=== PATIENT | male | born 1985 | race Caucasian/White ===

== ENCOUNTER 2018-07-21 15:28 | Emergency (ER) | payer MEDICAID, OTHER ==
--- NOTE | 2018-07-21 15:47 | EDPHY ---
H & P Time Seen by Provider: 07/21/18 15:31 HPI/ROS: Chief complaint. Alcohol intoxication, concerned about withdrawal HPI. Patient 33-year-old male here by EMS with alcohol intoxication. Patient tells me he has been drinking for 9 days and has decided he wants to quit. He has been drinking approximately a gal of whiskey daily for the last 9 days. He does have a history of alcoholism. He denies any injuries or illness. He has been vomiting per EMS and they gave him Zofran in route. He also got a L of fluid. Denies chest pain, shortness of breath, abdominal pain. He has been placed on an [employer] hold per [employer] [employer] ROS 10 systems were reviewed and negative with the exception of the elements mentioned in the history of present illness Past Medical/Surgical History: Alcoholism, depression Social History: Single, nonsmoker, recent alcohol Smoking Status: Never smoked Physical Exam: General Appearance: Alert well-developed male obviously intoxicated vital signs significant for heart rate 103. Mild distress Eyes: Pupils equal round reactive. Sclera somewhat injected bilaterally. ENT, Mouth: Mucous membranes are moist. Respiratory: There are no retractions, lungs are clear to auscultation. Cardiovascular: Regular rate and rhythm. Gastrointestinal: Abdomen is soft and nontender, no masses, bowel sounds normal. Neurological: Awake and alert, sensory and motor exams grossly normal. Skin: Mild bruising to left mid abdomen. Musculoskeletal: Neck is supple nontender. Extremities symmetrical, full range of motion. Psychiatric: Patient is oriented X 3, there is no agitation. Constitutional: Initial Vital Signs Temperature (C) 36.7 C 07/21/18 15:37 Heart Rate 103 H 07/21/18 15:37 Respiratory Rate 16 07/21/18 15:37 Blood Pressure 127/74 H 07/21/18 15:37 O2 Sat (%) 96 07/21/18 15:37 O2 Delivery Mode Room Air Allergies/Adverse Reactions: No Known Allergies Allergy (Unverified 11/01/14 01:54) Home Medications: Medication Instructions Recorded Citalopram [CeleXA] 20 mg PO DAILY 11/01/14 Ondansetron Odt [Zofran Odt] 4 mg PO Q4 #10 tab 11/02/14 chlordiazePOXIDE [Librium] 25 mg PO TID #6 cap 04/30/15 Prozac 10 MG (*) 07/21/18 Medical Decision Making Procedures: IV normal saline ED Course/Re-evaluation: 7:00 p.m. patient is ambulatory. Patient is stable . He and I discussed laboratory evaluation, treatment plan including criteria for return importance of follow-up and further evaluation. He expresses understanding and agreement Differential Diagnosis: Acute alcohol intoxication without significant sequelae - Data Points Laboratory Results: Laboratory Results 07/21/18 16:29 07/21/18 16:29 07/21/18 07/21/18 16:29 16:29 WBC 5.52 10^3/uL 10^3/uL (3.80-9.50) RBC 4.99 10^6/uL 10^6/uL (4.40-6.38) Hgb 15.9 g/dL g/dL (13.7-17.5) Hct 49.4 % % (40.0-51.0) MCV 99.0 fL fL (81.5-99.8) MCH 31.9 pg pg (27.9-34.1) MCHC 32.2 g/dL L g/dL (32.4-36.7) RDW 15.1 % % (11.5-15.2) Plt Count 270 10^3/uL 10^3/uL (150-400) MPV 8.9 fL fL (8.7-11.7) Neut % (Auto) 14.5 % L % (39.3-74.2) Lymph % (Auto) 71.2 % H % (15.0-45.0) [place] % (Auto) 12.3 % % (4.5-13.0) Eos % (Auto) 0.2 % L % (0.6-7.6) Baso % (Auto) 0.5 % % (0.3-1.7) Nucleat RBC Rel Count 0.0 % % (0.0-0.2) Absolute Neuts (auto) 3.93 10^3/uL 10^3/uL (1.70-6.50) Absolute Lymphs (auto) 0.68 10^3/uL L 10^3/uL (1.00-3.00) Absolute Monos (auto) 0.80 10^3/uL 10^3/uL (0.30-0.80) Absolute Eos (auto) 0.01 10^3/uL L 10^3/uL (0.03-0.40) Absolute Basos (auto) 0.03 10^3/uL 10^3/uL (0.02-0.10) Absolute Nucleated RBC 0.00 10^3/uL 10^3/uL (0-0.01) Immature Gran % 1.3 % H % (0.0-1.1) Immature Gran # 0.07 10^3/uL 10^3/uL (0.00-0.10) Sodium 127 mEq/L L mEq/L (135-145) Potassium 3.7 mEq/L mEq/L (3.5-5.2) Chloride 81 mEq/L L mEq/L (97-110) Carbon Dioxide 31 mEq/l mEq/l (22-31) Anion Gap 15 mEq/L H mEq/L (6-14) BUN 15 mg/dL mg/dL (7-23) Creatinine 0.7 mg/dL mg/dL (0.7-1.3) Estimated GFR > 60 Glucose 147 mg/dL H mg/dL (70-100) Calcium 8.0 mg/dL L mg/dL (8.5-10.4) Total Bilirubin 0.5 mg/dL mg/dL (0.1-1.4) Conjugated Bilirubin 0.4 mg/dL mg/dL (0.0-0.5) Unconjugated Bilirubin 0.1 mg/dL mg/dL (0.0-1.1) AST 72 IU/L H IU/L (17-59) ALT 91 IU/L H IU/L (21-72) Alkaline Phosphatase 72 IU/L IU/L (38-126) Total Protein 6.5 g/dL g/dL (6.3-8.2) Albumin 4.0 g/dL g/dL (3.5-5.0) Ethyl Alcohol 410 mg/dL H* mg/dL (0-10) Medications Given: Discontinued Medications Sodium Chloride (Ns) 1,000 mls @ 0 mls/hr IV EDNOW ONE; Wide Open PRN Reason: Protocol Stop: 07/21/18 15:53 Last Admin: 07/21/18 16:22 Dose: 1,000 mls Departure - Departure Disposition: Home, Routine, Self-Care Clinical Impression: Alcoholic intoxication Qualifiers: Complication of substance-induced condition: uncomplicated Qualified Code(s): F10.920 - Alcohol use, unspecified with intoxication, uncomplicated Condition: Good Instructions: Abuse of Alcohol (ED) Additional Instructions: Do not drink further alcohol today. Librium 1 pill every 3-4 hours as needed for tremulousness and alcohol withdrawal Return for worsening symptoms. [facility] without fail Referrals: Patient,NotPresent [Unknown] - As per Instructions [facility] [Outside] - 2-3 days without fail
[2018-07-21] MEDS ORDERED: NS 1,000 ML IV ONE (15:52)
[2018-07-21 17:57] LABS: PLATELET COUNT 270 10^3/uL (150-400)
[2018-07-21] MEDS ORDERED: CHLORDIAZEPOXIDE 25MG PREPK#6 BTL TAKEHOME ONE ×2 (19:09→19:23)
[2018-07-21 19:10] VITALS: BP 127/76
== END 2018-07-21 19:43 | disposition home or self-care (01) ==
LOC: EDUNIT#
DX: F10.929 Alcohol use, unspecified with intoxication, unspecified (principal); Y90.8 Blood alcohol level of 240 mg/100 ml or more
CPT/HCPCS: G0480

== ENCOUNTER 2018-09-14 15:24 | Emergency (ER) | payer MEDICAID ==
--- NOTE | 2018-09-14 17:48 | EDPHY ---
H & P Smoking Status: Never smoked Time Seen by Provider: 09/14/18 17:37 HPI/ROS: CHIEF COMPLAINT: Bilateral plantar foot pain HISTORY OF PRESENT ILLNESS: 33-year-old homeless male complaining of 1 week of bilateral plantar foot pain, possibly related to cold exposure. He is able to bear weight albeit with pain. Denies trauma. Denies discoloration. Denies paresthesia. History of alcohol abuse. Denies seizure. Denies hallucination. Tetanus up-to-date PHYSICAL EXAM (Prior to examination, patient consented to physical exam, hands were washed and my usual and customary physical exam procedures followed) 1) GENERAL: Well-developed, well-nourished, alert and oriented. Appears to be in no acute distress. 2) HEAD: Normocephalic 3) HEENT: sclera anicteric 4) LUNGS: Breathing comfortably. 5) SKIN: Bilateral feet, plantar aspect, subacute frostbite findings. No crepitus. No erythema. Dorsal aspect of foot nontender. Ankle nontender. Bilateral tib-fib nontender. Negative Homans. No palpable cord (Ernst Rob Sussy) Constitutional: Initial Vital Signs Temperature (C) 36.9 C 09/14/18 15:37 Heart Rate 110 H 09/14/18 15:37 Respiratory Rate 18 09/14/18 15:37 Blood Pressure 173/104 H 09/14/18 15:37 O2 Sat (%) 97 09/14/18 15:37 O2 Delivery Mode Room Air Allergies/Adverse Reactions: No Known Allergies Allergy (Verified 09/14/18 15:37) Home Medications: Medication Instructions Recorded Citalopram [CeleXA] 20 mg PO DAILY 11/01/14 Ondansetron Odt [Zofran Odt] 4 mg PO Q4 #10 tab 11/02/14 chlordiazePOXIDE [Librium] 25 mg PO TID #6 cap 11/02/14 Prozac 10 MG (*) 07/21/18 MDM/Departure - MDM Procedures: Procedure: Crutches indications for crutch use discussed with patient. Patient fitted for crutches by ER staff. Observed ambulating with crutches. I think the patient has the capacity to safely use crutches. Usual and customary crutch walking precautions provided (Ernst Rob) ED Course/Re-evaluation: I think that cellulitis, necrotizing fasciitis, fracture is less than likely in this patient he does have physical exam findings consistent with subacute frostbite. We discussed foot Health. He has been given crutches. I empathized with his living situation. Recommended close [facility]. He will need follow-up with wound clinic as well. Given his history of alcoholism and substance abuse, I recommended against opiates. Feels comfortable being discharged. Care of patient under supervision of secondary supervising physician Dr Vega. (Ernst Rob) - Depart Disposition: Home, Routine, Self-Care Clinical Impression: Frostbite of feet, bilateral Qualifiers: Encounter type: initial encounter Qualified Code(s): T33.821A - Superficial frostbite of right foot, initial encounter; T33.822A - Superficial frostbite of left foot, initial encounter; T33.822A - Superficial frostbite of left foot, initial encounter Condition: Good Instructions: Frostbite (ED) Additional Instructions: Please keep your feet warm and dry. Return to the ER if you develop worsening pain, if you develop discoloration or any other symptoms that concern you. Referrals: [facility],. [Clinic] - 1-2 days without fail
[2018-09-14 18:44] VITALS: BP 155/74
== END 2018-09-14 18:43 | disposition home or self-care (01) ==
LOC: EDUNIT#
DX: T33.821A Superficial frostbite of right foot, initial encounter (principal); T33.822A Superficial frostbite of left foot, initial encounter; X58.XXXA Exposure to other specified factors, initial encounter; Y92.9 Unspecified place or not applicable; Y99.9 Unspecified external cause status; Y93.9 Activity, unspecified; Z59.0 Homelessness

== ENCOUNTER 2018-11-04 15:52 | Emergency (ER) | payer MEDICAID, OTHER ==
--- NOTE | 2018-11-04 15:57 | EDPHY ---
H & P Smoking Status: Never smoked Time Seen by Provider: 11/04/18 15:57 HPI/ROS: CHIEF COMPLAINT: Altered mental status HISTORY OF PRESENT ILLNESS: Fire was driving back from another call and found him asleep in his car. Apparently look like he has been living there for several days with multiple empty liquor bottles, several day old eating chicken bones, other detritus. Patient was only alert oriented x1. Brought into the ER for further evaluation. Was very tachycardic pre-hospital. He just says he "feels bad" but denies any other complaints. He says he has not had any alcohol for at least 1 day but does drink heavily. REVIEW OF SYSTEMS: Eye: no change in vision ENT: no sore throat Cardiac: no chest pain or syncope Pulmonary: no cough or SOB Abdomen: no vomiting, diarrhea, abdominal pain Musculoskeletal: no back pain Skin: no rash Neuro: no headache Constitutional: no fever : no urinary symptoms A comprehensive 10 point review of systems is otherwise negative aside from elements mentioned in the history of present illness. PAST MEDICAL HISTORY: Denies Social history: Denies recent alcohol in the last 24 hr General Appearance: Alert and conversant, cooperative. Eyes: No scleral icterus. Pupils equal reactive extraocular motion intact. ENT, Mouth: Normal mucous membranes. No tongue laceration or abrasion. Respiratory: Normal respiratory effort, breath sounds equal, lungs are clear to auscultation. Cardiovascular: Regular rate and rhythm. Tachycardic. Gastrointestinal: Abdomen is soft and non tender. Neurological: Alert but only oriented x1, moves all 4 extremities. Can follow commands but has difficulty answering questions about what happened today. Skin: Warm and dry, no rashes. Musculoskeletal: No peripheral edema. No meningeal signs. Psychiatric: Not agitated. Emergency Department course/MDM: Patient placed on a mental incapacity hold for only oriented x1. Alcohol greater than 400 resulted at 4:30 p.m.. 1920: Alert and says "I want to go to detox." 2199: Saline 1 L and Zofran 4 mg IV. Nausea and vomiting. Signed out to [facility], plan for discharge to detox if possible. (Abrahan Johns) Constitutional: Initial Vital Signs Temperature (C) 36.6 C 11/04/18 15:52 Heart Rate 131 H 11/04/18 15:52 Respiratory Rate 16 11/04/18 15:52 Blood Pressure 119/81 H 11/04/18 15:52 O2 Sat (%) 99 11/04/18 15:52 O2 Delivery Mode Room Air O2 (L/minute) 3 Allergies/Adverse Reactions: No Known Allergies Allergy (Verified 09/14/18 15:37) Home Medications: Medication Instructions Recorded Clonidine 11/04/18 Gabapentin 11/04/18 Naltrexone 11/04/18 Medical Decision Making - Diagnostics EKG Interpretation: 12-lead EKG interpreted by me; official reading is in computer system. My interpretation is sinus tachycardia rate 127 with borderline prolonged QT otherwise normal. (Abrahan Johns) ED Course/Re-evaluation: 0230AM: Patient alert and awake, ambulatory, clinically sober. He denies any complaints at this time. He is requesting be discharged to detox. His heart rate is 103 at this time. Resting comfortably. He has been the emergency room for close to 11 hr sobering. He initially came in with very high alcohol level close to 436. Now sober. Librium will be provided. (Saurav Case) Differential Diagnosis: Differential diagnosis considered for altered mental status including but not limited to hypoglycemia, infectious process, electrolyte abnormality, head injury and intoxicants. (Abrahan Johns) - Data Points Laboratory Results: Laboratory Results 11/04/18 15:55 11/04/18 15:55 11/04/18 11/04/18 11/04/18 16:32 15:55 15:55 WBC 7.38 10^3/uL 10^3/uL (3.80-9.50) RBC 5.43 10^6/uL 10^6/uL (4.40-6.38) Hgb 16.8 g/dL g/dL (13.7-17.5) Hct 48.1 % % (40.0-51.0) MCV 88.6 fL fL (81.5-99.8) MCH 30.9 pg pg (27.9-34.1) MCHC 34.9 g/dL g/dL (32.4-36.7) RDW 14.1 % % (11.5-15.2) Plt Count 340 10^3/uL 10^3/uL (150-400) MPV 8.7 fL fL (8.7-11.7) Neut % (Auto) 64.5 % % (39.3-74.2) Lymph % (Auto) 19.1 % % (15.0-45.0) [place] % (Auto) 14.4 % H % (4.5-13.0) Eos % (Auto) 1.5 % % (0.6-7.6) Baso % (Auto) 0.4 % % (0.3-1.7) Nucleat RBC Rel Count 0.0 % % (0.0-0.2) Absolute Neuts (auto) 4.76 10^3/uL 10^3/uL (1.70-6.50) Absolute Lymphs (auto) 1.41 10^3/uL 10^3/uL (1.00-3.00) Absolute Monos (auto) 1.06 10^3/uL H 10^3/uL (0.30-0.80) Absolute Eos (auto) 0.11 10^3/uL 10^3/uL (0.03-0.40) Absolute Basos (auto) 0.03 10^3/uL 10^3/uL (0.02-0.10) Absolute Nucleated RBC 0.00 10^3/uL 10^3/uL (0-0.01) Immature Gran % 0.1 % % (0.0-1.1) Immature Gran # 0.01 10^3/uL 10^3/uL (0.00-0.10) Sodium 139 mEq/L mEq/L (135-145) Potassium 4.1 mEq/L mEq/L (3.5-5.2) Chloride 96 mEq/L L mEq/L (97-110) Carbon Dioxide 24 mEq/l mEq/l (22-31) Anion Gap 19 mEq/L H mEq/L (6-14) BUN 11 mg/dL mg/dL (7-23) Creatinine 1.0 mg/dL mg/dL (0.7-1.3) Estimated GFR > 60 Glucose 149 mg/dL H mg/dL (70-100) Calcium 9.8 mg/dL mg/dL (8.5-10.4) Creatine Kinase 961 IU/L H IU/L (0-224) CK-MB (CK-2) Fraction 19.40 ng/mL H ng/mL (0.00-4.55) CK-MB (CK-2) % 2.0 % % (0.0-4.0) Creatine Kinase Interp NEGATIVE (NEGATIVE) Salicylates < 1.0 mg/dL L mg/dL (2.0-20.0) Urine Opiates Screen NEGATIVE (NEGATIVE) Acetaminophen < 10 mcg/mL L mcg/mL (10-30) Urine Barbiturates NEGATIVE (NEGATIVE) Ur Phencyclidine Scrn NEGATIVE (NEGATIVE) Ur Amphetamine Screen NEGATIVE (NEGATIVE) U Benzodiazepines Scrn NEGATIVE (NEGATIVE) Urine Cocaine Screen NEGATIVE (NEGATIVE) U Marijuana (THC) Screen NEGATIVE (NEGATIVE) Ethyl Alcohol 436 mg/dL H* mg/dL (0-10) Medications Given: Discontinued Medications Sodium Chloride (Ns) 1,000 mls @ 3,000 mls/hr IV ONCE ONE Stop: 11/04/18 18:22 Last Admin: 11/04/18 18:14 Dose: 1,000 mls Sodium Chloride (Ns) 1,000 mls @ 0 mls/hr IV ONCE ONE; Wide Open PRN Reason: Protocol Stop: 11/04/18 19:27 Last Admin: 11/04/18 19:26 Dose: 1,000 mls Sodium Chloride (Ns) 1,000 mls @ 0 mls/hr IV EDNOW ONE; Wide Open PRN Reason: Protocol Stop: 11/04/18 22:00 Last Admin: 11/04/18 22:04 Dose: 1,000 mls Lorazepam (Ativan Injection) 1 mg IVP EDNOW ONE Stop: 11/04/18 18:40 Last Admin: 11/04/18 18:40 Dose: 1 mg Ondansetron HCl (Zofran) 4 mg IVP EDNOW ONE Stop: 11/04/18 22:00 Last Admin: 11/04/18 22:03 Dose: 4 mg Departure - Departure Disposition: Home, Routine, Self-Care Clinical Impression: Alcoholic intoxication Qualifiers: Complication of substance-induced condition: uncomplicated Qualified Code(s): F10.920 - Alcohol use, unspecified with intoxication, uncomplicated Condition: Good Instructions: Alcohol Intoxication (ED) Referrals: Zari Yeh MD [Medical Doctor] - As per Instructions
[2018-11-04 16:05] LABS: PLATELET COUNT 340 10^3/uL (150-400)
[2018-11-04 16:17] LABS: CREATINE KINASE 961 IU/L (0-224)
--- NOTE | 2018-11-04 16:30 | CPEKG ---
Test Reason : OPEN Blood Pressure : / mmHG Vent. Rate : 127 BPM Atrial Rate : 127 BPM P-R Int : 146 ms QRS Dur : 097 ms QT Int : 328 ms P-R-T Axes : 041 036 027 degrees QTc Int : 477 ms Sinus tachycardia Borderline prolonged QT interval Confirmed by Abrahan Johns ([id number]) on 11/04/2018 4:29:47 PM Referred By: Abrahan Johns Confirmed By:Abrahan Johns
[2018-11-04] MEDS ORDERED: NS 1,000 ML IV ONE ×3 (18:03→21:59)
[2018-11-04] MEDS ORDERED: LORazepam 2 MG/ML INJ ONE (18:35)
[2018-11-04] MEDS ORDERED: LORazepam 2 MG/ML INJ IVP ONE (18:39)
[2018-11-04] MEDS ORDERED: ONDANSETRON 4 MG/2 ML VIAL IVP ONE (21:59)
[2018-11-04 23:48] VITALS: BP 102/68
[2018-11-05] MEDS ORDERED: CHLORDIAZEPOXIDE 25MG PREPK#6 BTL TAKEHOME ONE (02:25)
== END 2018-11-05 03:32 | disposition home or self-care (01) ==
LOC: EDUNIT#
DX: F10.920 Alcohol use, unspecified with intoxication, uncomplicated (principal); E86.9 Volume depletion, unspecified
CPT/HCPCS: 80305; 96374; G0480; J2060; J2405

== ENCOUNTER 2018-12-05 04:15 | Emergency (ER) | payer MEDICAID | END 2018-12-05 04:51 | disposition home or self-care (01) ==

== ENCOUNTER 2018-12-05 16:47 | Emergency (ER) | payer MEDICAID | END 2018-12-06 00:51 | disposition home or self-care (01) ==